=== PATIENT | female | born 1945 | race Caucasian/White ===

== ENCOUNTER 2017-09-30 15:39 | Observation (INO) | payer MEDICARE, BC ==
--- NOTE | 2017-09-30 17:11 | ERNOTE ---
Dyspnea - General Presenting Symptoms: shortness of breath Time Seen by Provider: 09/30/17 16:38 Exam Limitations: no limitations - Immun/Allergies/Home Medications Immunizations: IMMUNIZATION HX Immunizations Up to Date Yes History of Influenza Vaccine Yes Hx Pneumococcal Vaccination Yes Allergies/Adverse Reactions: Allergies iodine Allergy (Verified 09/30/17 15:47) nefazodone [From Serzone] Allergy (Verified 09/30/17 15:47) tetanus and diphtheria toxoids Allergy (Verified 09/30/17 15:47) Home Medications: HOME MEDICATIONS Albuterol Sulfate [Ventolin HFA] 2 puff IH QID 09/30/17 [Last Taken Unknown] Allopurinol [Zyloprim (Allopurinol)] 100 mg PO DAILY 09/30/17 [Last Taken Unknown] Gabapentin 600 mg PO DAILY 09/30/17 [Last Taken Unknown] Gabapentin 900 mg PO HS 09/30/17 [Last Taken Unknown] Hydroxyzine HCl 25 mg PO BID PRN 09/30/17 [Last Taken Unknown] Lorazepam [Ativan] 0.5 mg PO BID PRN 09/30/17 [Last Taken Unknown] Methadone 10 mg PO TID PRN 09/30/17 [Last Taken Unknown] Mirabegron [Myrbetriq] 50 mg PO DAILY 09/30/17 [Last Taken Unknown] Potassium Chloride [Klor-Con M20] 20 meq PO DAILY 09/30/17 [Last Taken Unknown] Pravastatin Sodium [Pravachol] 20 mg PO DAILY 09/30/17 [Last Taken Unknown] Spironolactone 50 mg PO DAILY 09/30/17 [Last Taken Unknown] Torsemide [Demadex] 40 mg PO DAILY 09/30/17 [Last Taken Unknown] Triamcinolone Acetonide [Kenalog 0.1%] 15 gm TP BID 09/30/17 [Last Taken Unknown ] Vilazodone HCl [Viibryd] 40 mg PO DAILY 09/30/17 [Last Taken Unknown] rOPINIRole HCL [Requip] 1 mg PO DAILY 09/30/17 [Last Taken Unknown] - History of Present Illness Narrative: Patient went to [place] about six weeks ago (11 hrs car ride). In [place] she noticed chest tightness and blamed it on the elevation, about a week ago also started feeling short of breath. When she came back she continued to be short of breath , saw her PCP on September 25 and again on the , had labs and CXR done, d-dimer results came back today elevated at 6.5 and she was told to go to the ER. She denies any chest pain, no shortness of breath at rest but with minimal exertion, she sleeps in a recliner, had MARIAELENA but doesn't tolerate a CPAP. she had chronic leg edema not any worse than usual She was told many years ago when she had testing done that she was allergic to iodine. She has no idea what kind of reaction she had and whether the iodine was topical or IV. She had a heart cath done about 10 years ago at [facility] and tolerated that well Initiating event: Reports: other Frequency of episodes: Reports: no prior episodes Modifying Factors - (Improves): Reports: rest Modifying Factors (Worsens): Reports: activity Associated Symptoms-Dyspnea: Denies: fever/chills, sweating, chest pain/ discomfort, ankle/leg swelling, dizziness, lightheadedness Review of Systems - Review of Systems Constitutional: Absent: recent illness, fever, chills EYE: Absent: double vision ENT: Absent: nose congestion, sore throat Respiratory: Present: See HPI, shortness of breath. Absent: cough Cardiology: Absent: chest pain, palpitations Gastrointestinal/Abdominal: Absent: nausea, vomiting, abdominal pain Genitourinary: Present: no symptoms reported Musculoskeletal: Present: no symptoms reported Neurological: Absent: headache, weakness, numbness - Patient's Past Medical History Patient History - Medical: Chronic Pain, Obesity Patient History - Cardiac/Respiratory: Asthma, Valvular Heart Disease, Sleep Apnea Patient History - Cancer: No Hx of Cancer Patient History - Surgical Procedures: Cataracts, Total Knee Replacement Patient History - Other: None LMP (females 10-50): Menopausal - Social History Living Situations: alone Psych History: Hx of Anxiety, Hx of Depression Smoking Status: Never smoker Alcohol Use: none Drug Use: none - Immunizations Immunizations Up to Date: Yes Hx Pneumococcal Vaccination: Yes History of Influenza Vaccine: Yes Physical Exam - Physical Exam General Appearance: Present: wd/wn, alert, no apparent distress, obese Head Exam: Present: normal inspection Ears, Nose, Throat: Present: normal ENT inspection, normal pharynx Respiratory: Present: no respiratory distress, normal breath sounds, no accessory muscle use, lungs clear Cardiovascular/Chest: Present: regular rate, rhythm, no murmur Gastrointestinal/Abdominal: Present: nontender Extremity Exam: Present: other - chronic edema with chronic skin changes. Absent: calf tenderness Neurological Exam: Present: alert, oriented, normal mood/affect Skin Exam: Present: normal color, warm/dry ED Progress - Results and Orders Patient's Lab Results:: I have reviewed the patient's lab results. - Vital Signs Patient's Vital Signs:: I have reviewed the patient's vital signs. Vital Signs: Vital Signs 09/30/17 15:42 Temperature 36.7 C Pulse Rate 92 Respiratory 19 Rate Blood Pressure 131/66 O2 Sat by Pulse 94 Oximetry - EKG EKG: NSR, other - no acute changes EKG read: Interp. by me - CT/Ultrasound CT/Ultrasound Narrative: CTA: extensive bilateral PE, early heart strain - Progress/Reassessment Chief Complaint: Dyspnea Progress Note-Subjective: 09/30/17 18:[address] with radiologist, extensive bilateral PE 09/30/17 18:42 discussed with patient and family 09/30/17 18:43 discussed with farideh Garcia to admit for observation, start lovenox, will decide later on terminal manager anticoagulation Departure Clinical Impression: Pulmonary embolism, bilateral - Departure Disposition: [facility] Condition: Stable
[2017-09-30] MEDS ORDERED: ENOXAPARIN SODIUM 100 MG/ML SYRG SC ONE ×2 (18:49→18:51)
[2017-09-30] MEDS ORDERED: ENOXAPARIN SODIUM 30 MG/0.3 ML SYRG SC ONE ×2 (18:49→18:51)
--- NOTE | 2017-09-30 20:26 | HP ---
Chief Complaint - Chief Complaint Date of Service: 09/30/17 Time of Service: 20:26 Chief Complaint: " SOB, Calf Pain ". Souce of HPI- Pt; reliable, ERP report. History of Present Illness: Mrs. Landrum is a 72-yr-old WF pt with a PMH of: Arthritis, Depression, HTN, HLD , Mitral Valve Prolapse, Neuropathy & MARIAELENA. Pt states that she took a trip to [place], [place] on 08/09/2017. When she arrived there, she felt SOB and her chest felt heavy.She attributed her symptoms to altitude changes. Then around the Sep 18, she felt more SOB. She left [place] on 09/22/[address] home she felt SOB. She had a follow-up with her neurologist who advised her to see PCP about her symptoms. She was seen at the Clinic in [facility] on Monday 09/25 and she had some viral tests done and she was started on inhalers. She states that her Dyspnea did not improve and saw her PCP again on Thursday 09/28. She had CXR and D-dimer tests. Her D-dimer test came back elevated at 6.5 today and she was advised to go to the ED. She denies the associated symptoms of Chest pain, and palpitations. She also denies any recent surgeries, prior VTE, HRT and family history of thrombophilia. She has a living sister who has history of DVT. The CT scan obtained at the ED showed: Extensive Bilateral Pulmonary Emboli, Pulm. HTN & early RT heart Strain. She received anticoagulation tx with Lovenox at the ED. She will be admitted under observation status for remote telemetry monitoring and to arrange transition to oral anticoagulation therapy. - Patient's Past Medical History Patient History - Medical: Chronic Pain, Obesity Patient History - Cardiac/Respiratory: Asthma, Valvular Heart Disease, Sleep Apnea Patient History - Cancer: No Hx of Cancer Patient History - Surgical Procedures: Cataracts, Total Knee Replacement Patient History - Other: None LMP (females 10-50): Menopausal - Family History Mother Family History - Medical: Family History - Cardiac/Respiratory: CVA/Stroke Family History - Cancer: No pertinent family hx Father Family History - Medical: Family History - Cardiac/Respiratory: No pertinent hx Family History - Cancer: Prostate - Social History Living Situations: alone Psych History: Hx of Anxiety, Hx of Depression Smoking Status: Never smoker Alcohol Use: none Drug Use: none - Immunizations Immunizations Up to Date: Yes Hx Pneumococcal Vaccination: Yes History of Influenza Vaccine: Yes Review Of Systems (GEN) - Review of Systems Generalized/Overall Review: Absent: Weakness, Chills, Fever, Malaise EENTM: Absent: Eye Pain, Blurred Vision Respiratory: Present: Shortness of Breath. Absent: Cough, Orthopnea, Stridor Cardiac: Absent: Chest Pain, Edema, Palpitations, Syncope Abdominal: Absent: Nausea, Vomiting, Hematemesis, Abdominal Pain Genitourinary: Absent: Burning, Itching, Urgency, Frequency Musculoskeletal: Absent: Joint Pain, Back Pain, Joint Swelling Neurological: Present: Anxiety, Depressed. Absent: Headache, Emotional Problems Skin: Present: Dryness. Absent: Other Endocrine: Present: Intolerance to Heat. Absent: Flushing, Increased Thirst Misc: All systems neg except as marked Immunizations: IMMUNIZATION HX Immunizations Up to Date Yes History of Influenza Vaccine Yes Hx Pneumococcal Vaccination Yes Allergies/Adverse Reactions: Allergies Allergy/AdvReac Type Severity Reaction Status Date / Time iodine Allergy Verified 09/30/17 15:47 nefazodone [From Serzone] Allergy Verified 09/30/17 15:47 tetanus and diphtheria Allergy Verified 09/30/17 15:47 toxoids Home Medications: HOME MEDICATIONS Albuterol Sulfate [Ventolin HFA] 2 puff IH QID PRN 09/30/17 [Last Taken Unknown] Allopurinol [Zyloprim (Allopurinol)] 200 mg PO HS 09/30/17 [Last Taken Unknown] Gabapentin 400 mg PO DAILY 09/30/17 [Last Taken Unknown] Gabapentin 600 mg PO HS 09/30/17 [Last Taken Unknown] Hydroxyzine HCl 25 mg PO BID PRN 09/30/17 [Last Taken Unknown] Lorazepam [Ativan] 0.5 mg PO BID PRN 09/30/17 [Last Taken Unknown] Methadone 10 mg PO TID PRN 09/30/17 [Last Taken Unknown] Mirabegron [Myrbetriq] 50 mg PO DAILY 09/30/17 [Last Taken Unknown] Potassium Chloride [Klor-Con M20] 20 meq PO DAILY 09/30/17 [Last Taken Unknown] Pravastatin Sodium [Pravachol] 20 mg PO HS 09/30/17 [Last Taken Unknown] Spironolactone 50 mg PO DAILY 09/30/17 [Last Taken 09/29/17 07:00] Torsemide [Demadex] 40 mg PO DAILY 09/30/17 [Last Taken Unknown] Triamcinolone Acetonide [Kenalog 0.1%] 15 gm TP BID 09/30/17 [Last Taken Unknown ] Vilazodone HCl [Viibryd] 40 mg PO DAILY 09/30/17 [Last Taken Unknown] rOPINIRole HCL [Requip] 1 mg PO HS 09/30/17 [Last Taken Unknown] Exam - Exam Vital Signs: Vital Signs - Last Taken Temp 36.3 C L 09/30/17 18:52 Pulse 68 09/30/17 18:52 Resp 16 09/30/17 18:52 BP 133/62 09/30/17 18:52 Pulse Ox 94 09/30/17 18:52 Constitutional: Present: Alert, Oriented x3, Cooperative, No distress, Obese ENT Exam: Present: normal ENT inspection Eye Exam: bilateral eye: normal inspection, PERRL Neck: Present: non-tender, full range of motion, supple Back Exam: Present: normal inspection, no CVA tenderness Respiratory: Present: chest non-tender, No rales, No wheezing Cardiovascular/Chest: Present: normal peripheral pulses, regular rate, rhythm, no chest tenderness, no murmur Abdomen: Present: Normal bowel sounds, soft, nontender, obese /Rectal: Present: Exam deferred Extremity: Present: normal range of motion, lower extremity edema - Non pitting BLE Skin Exam: Present: other - Discolouration on BLE Lymphatic: Present: no adenopathy Appearance: Present: appropriate appearance, appropriate insight Eye contact: Present: cooperative, good eye contact, normal speech Thoughts: Present: normal thought pattern, no apparent hallucination Diagnostic Studies: Laboratory Results BUN 25 mg/dL (3-23) H 09/30/17 17:46 Creatinine 1.04 mg/dL (0.4-1.4) 09/30/17 17:46 Est GFR (Non-Af Amer) 56 mL/min (60-130) L 09/30/17 17:46 BUN/Creatinine Ratio 24.0 (9.0-21.6) H 09/30/17 17:46 Assessment/Plan - Assessment/Plan (1) Pulmonary embolism, bilateral Assessment: Pt is a 72-yr-old WF determined to have bilat. Pulmonary Embolism on CTA. The likely risk factors she has for pulmonary embolism include: obesity and prolonged travelling > 4 hrs, CHF? She received Lovenox at the ED. She will be placed on telemetry unit and will be monitored for any hymodynamic instability. I have discussed VKA therapy over DOAC in her case and she will make the decision tomorrow based on what insurance can cover and out of pocket costs. Will continue with Lovenox until decision on oral anticoagulation is made by the pt. For initial episode with reversible risk factors, anticoagulation for at 6 months is recommended. Problem: Acute (2) HTN (hypertension) Problem: Chronic Qualifiers: Hypertension type: essential hypertension Qualified Code(s): I10 - Essential (primary) hypertension (3) HLD (hyperlipidemia) Problem: Chronic (4) MARIAELENA (obstructive sleep apnea) Problem: Chronic (5) Neuropathy Problem: Chronic
[2017-09-30] MEDS ORDERED: METHADONE HCL 10 MG TABLET PO PRN (21:54)
[2017-09-30] MEDS ORDERED: hydrOXYzine HCL 25 MG TABLET PO PRN (21:55)
[2017-09-30] MEDS ORDERED: LORazepam 0.5 MG TABLET PO PRN (21:56)
[2017-09-30] MEDS ORDERED: GABAPENTIN 300 MG CAPSULE PO SCH (22:00)
[2017-09-30] MEDS ORDERED: ALLOPURINOL 100 MG TABLET PO SCH (22:00)
[2017-09-30] MEDS ORDERED: rOPINIRole HCL 1 MG TABLET PO SCH (22:00)
[2017-09-30] MEDS ORDERED: SIMVASTATIN 10 MG TABLET PO SCH (22:15)
[2017-09-30] MEDS ORDERED: SIMVASTATIN 20 MG TABLET ONE (22:21)
[2017-09-30 22:46] LABS: Hematocrit 42.9 % (37.0-47.0); Hemoglobin 13.8 gm/dL (12.5-16.0); Mean Cell Volume 92.9 fl (78-100); Mean Corpuscular Hemoglobin 29.9 pg (27-31); Mean Corpuscular Hgb Conc 32.2 g/dl (32-36); Mean Platelet Volume 10.7 fl (6.0-9.5); Neutrophil # 7.6 K/mm3 (1.3-6.0); Neutrophil % 68.7 % (42-75.0); Platelet Count 220 K/mm3 (150-450); Red Blood Count 4.62 M/mm3 (4.2-5.4); Red Cell Distribution Width 13.9 % (11.5-14.0); White Blood Count 11.1 K/mm3 (4.0-10.5)
[2017-09-30 22:50] LABS: Anion Gap 13.5 mmol/L (6.8-13.8); BUN/Creatinine Ratio 22.5 (9.0-21.6); Calcium * 9.4 mg/dL (7.9-10.9); Carbon Dioxide 29.4 mmol/L (24-32.6); Estimated Creat Clear 42.4; Potassium 3.9 mmol/L (3.4-4.6)
[2017-10-01 06:32] LABS: Prothrombin Time (Patient) 9.4 Seconds (9.0-11.0)
[2017-10-01 06:33] LABS: INR 0.94 INR (0.90-1.10)
[2017-10-01] MEDS ORDERED: ENOXAPARIN SODIUM 100 MG, ENOXAPARIN SODIUM 40 MG SC SCH ×2 (07:00)
[2017-10-01] MEDS ORDERED: ENOXAPARIN SODIUM 60 MG/0.6 ML SYRG SC SCH (07:00)
[2017-10-01] MEDS ORDERED: MIRABEGRON 50 MG PO SCH (09:00)
[2017-10-01] MEDS ORDERED: GABAPENTIN 400 MG CAPSULE PO SCH (09:00)
[2017-10-01] MEDS ORDERED: POTASSIUM CHLORIDE 20 MEQ TABLET.SA PO SCH (09:00)
[2017-10-01] MEDS ORDERED: SPIRONOLACTONE 25 MG TABLET PO SCH (09:00)
[2017-10-01] MEDS ORDERED: TORSEMIDE 20 MG TABLET PO SCH (09:00)
[2017-10-01] MEDS ORDERED: NON-FORMULARY 1 DOSE DOSE (Vilazodone Hcl [Viibryd] 40 MG) PO SCH (09:00)
[2017-10-01] MEDS ORDERED: WARFARIN SODIUM 5 MG TABLET PO SCH (10:00)
--- NOTE | 2017-10-01 10:35 | DS ---
(1) Pulmonary embolism, bilateral Problem: Acute Description of Stay: Jackie was admitted to observation for bilateral extensive pulmonary embolism for monitoring of respiratory status. She was not hypoxic in the ER, but due to the extensiveness of her clot burden it was needed to make sure her respiratory status was not compromised. She did well and had no evidence of hypoxia. She was started on lovenox and coumadin. She was medically doing well with stable vitals. She was discharged to home after monitoring overnight on lovenox and coumadin. She will follow up in the coumadin clinic for management. Procedures Performed: none Discharge Disposition: Home self care Disposition: Home self-care Condition: Stable Discharge Activity: Activity as tolerated Discharge Diet: General/regular food Referrals: Ranjan Hay FNP [Primary Care Provider] - Problem Oriented Discharge Instructions to Patient/Family: Warfarin: What You Need to Know, Warfarin Coagulopathy, Pulmonary Embolism Additional Patient Instructions (free text): Needs appointment scheduled for INR at [facility] on 10/03. Follow up appointment with Dr. Ranjan Hay on 10/05/17 at 8:30am. Prescriptions (Any new or edited meds): Enoxaparin Sodium [Lovenox] 140 mg SC Q12H #10 disp.syrin Warfarin Sodium [Coumadin] 5 mg PO DAILY@1700 #30 tablet Complete Home Medications List: Complete Home Medication List: Albuterol Sulfate [Ventolin HFA] 2 puff IH QID PRN 09/30/17 Allopurinol [Zyloprim] 200 mg PO HS 09/30/17 Gabapentin 400 mg PO DAILY 09/30/17 Gabapentin 600 mg PO HS 09/30/17 Hydroxyzine HCl 25 mg PO BID PRN 09/30/17 Lorazepam [Ativan] 0.5 mg PO BID PRN 09/30/17 Mirabegron [Myrbetriq] 50 mg PO DAILY 09/30/17 Potassium Chloride [Klor-Con M20] 20 meq PO DAILY 09/30/17 Pravastatin Sodium [Pravachol] 20 mg PO HS 09/30/17 Spironolactone 50 mg PO DAILY 09/30/17 Torsemide [Demadex] 40 mg PO DAILY 09/30/17 Triamcinolone Acetonide [Kenalog 0.1%] 15 gm TP BID 09/30/17 Vilazodone HCl [Viibryd] 40 mg PO DAILY 09/30/17 rOPINIRole HCL [Requip] 1 mg PO HS 09/30/17 Enoxaparin Sodium [Lovenox] 140 mg SC Q12H #10 disp.syrin 10/01/17 Methadone HCl [Methadone] 10 mg PO TID PRN 10/01/17 Warfarin Sodium [Coumadin] 5 mg PO DAILY@1700 #30 tablet 10/01/17 Amb Orders for Discharge: Prothrombin Time Time Frame: 10/03/17, Facility: [facility], Location: Laboratory
[2017-10-01 11:36] VITALS: BP 136/74
== END 2017-10-01 11:25 | disposition home or self-care (01) ==
LOC: ER 15:39 → MS 18:50
PROVIDERS: ADMIT Family Medicine; ATTEND Family Medicine
DX: I34.1 Nonrheumatic mitral (valve) prolapse; M19.90 Unspecified osteoarthritis, unspecified site; F32.9 Major depressive disorder, single episode, unspecified; E78.5 Hyperlipidemia, unspecified; G62.9 Polyneuropathy, unspecified; E66.9 Obesity, unspecified; I10 Essential (primary) hypertension; G89.29 Other chronic pain; Z68.43 Body mass index [BMI] 50.0-59.9, adult; I26.99 Other pulmonary embolism without acute cor pulmonale
CPT/HCPCS: 36415; 71275; 80048; 82565; 83880; 84520; 85025; 85610; 93005; 96372; 99284; G0378